=== PATIENT | male | born 1965 | race Hispanic/Latino ===

== ENCOUNTER 2017-10-20 16:28 | Inpatient (IN) | payer MEDICAID, OTHER ==
[~2017-10-20] VITALS: Ht 157.5 cm; Wt 58.3 kg
[~2017-10-20 16:28] MED LIST: FERS325 PO; FURO40TA5 PO; LACT10SO75 PO; SPIR25TA PO; THIA100T75 PO; vitamin b1 PO
[2017-10-20] MEDS ORDERED: IPRATROPIUM/ALBUTEROL SULFATE 3 ML SOLUTION IH ONE (16:57)
[2017-10-20 17:02] LABS: BASOPHILS % (AUTO) 0.7 % (0.0-5.0); EOSINOPHILS % (AUTO) 10.7 % (0.0-8.0); HEMATOCRIT 23.9 % (42-54); LYMPHOCYTES % (AUTO) 8.2 % (21.0-51.0); MEAN CORPUSCULAR HEMOGLOBIN 32.4 pg (27.0-33.0); MEAN CORPUSCULAR HGB CONC 35.6 g/dL (32.0-36.0); MONOCYTES % (AUTO) 15.5 % (3.0-13.0); NEUTROPHILS % (AUTO) 64.9 % (40.0-77.0); PLATELET COUNT (AUTO) 100 K/uL (130-400); RED BLOOD CELL COUNT(AUTO) 2.62 MIL/uL (4.50-6.20); RED CELL DISTRIBUTION WIDTH 19.4 % (11.0-15.5); WHITE BLOOD COUNT (AUTO) 7.9 K/uL (4.8-10.8)
[2017-10-20 17:14] LABS: INR 1.25 (0.85-1.15); PARTIAL THROMBOPLASTIN TIME 32.7 SEC (26.3-35.5); PROTHROMBIN TIME 13.1 SEC (9.6-11.6)
[2017-10-20 17:22] LABS: CREATININE 1.2 mg/dL (0.5-1.5); POTASSIUM 5.6 mmol/L (3.5-5.1)
[2017-10-20 17:27] LABS: ALBUMIN 2.2 g/dL (3.5-5.0); BILIRUBIN,TOTAL 1.3 mg/dL (0.2-1.0); TOTAL PROTEIN, SERUM 7.7 g/dL (6.0-8.3)
[2017-10-20] MEDS ORDERED: METRONIDAZOLE 500MG/100ML BAG 100 ML ONE (18:06)
[2017-10-20] MEDS ORDERED: LIDOCAINE HCL 1% 20 ML VIAL ONE (18:49)
[2017-10-20] MEDS ORDERED: ALBUMIN (HUMAN) 25% 200 ML IV ONE (19:50)
[2017-10-20] MEDS ORDERED: SODIUM CHLORIDE 0.9% 1000ML 1,000 ML IV ONE (22:15)
[2017-10-20] MEDS ORDERED: SODIUM POLYSTYRENE SULFONATE 15 GM/60 ML ML ONE (23:10)
[2017-10-20] MEDS ORDERED: CALCIUM GLUCONATE 1 GM/10 ML VIAL IV ONE (23:11)
[2017-10-20] MEDS ORDERED: DEXTROSE 50%-WATER 50 ML DISP.SYRIN IV ONE (23:11)
[2017-10-20] MEDS ORDERED: INSULIN HUMULIN R 100 UNIT/ML 3ML ONE (23:12)
[2017-10-20 23:51] LABS: GLUCOSE,BODY FLUID 123 mg/dL (1-40)
[2017-10-21] MEDS ORDERED: ONDANSETRON HCL 4 MG/2 ML VIAL IV PRN (00:15)
[2017-10-21] MEDS ORDERED: MORPHINE SULFATE 2 MG/ML 1ML SYG IV PRN (00:15)
[2017-10-21] MEDS ORDERED: HYDRALAZINE HCL 20 MG/ML VIAL IV PRN (00:15)
[2017-10-21] MEDS ORDERED: ACETAMINOPHEN 325 MG TAB PO PRN (00:15)
[2017-10-21 00:33] LABS: BF EOSINOPHIL 4 %; BF MESOTHELIAL 3 %; BF MONOCYTE 14 %
[2017-10-21 00:34] LABS: APPEARANCE BODY FLUID SLIGHTLY CLOUDY (CLEAR); COLOR,BODY FLUID YELLOW (LT YELLOW); SPECIMENTYPE,BODY FLUID PERITONEAL
[2017-10-21 00:35] LABS: TOTAL VOLUME,BODY FLUID 12 mL
[2017-10-21 00:36] LABS: BODY FLUID RBC 8 /cu. mm.; BODY FLUID WBC 14 /cu. mm.
[2017-10-21] MEDS ORDERED: MIDODRINE HCL 5 MG TABLET ONE (02:09)
[2017-10-21 05:33] LABS: BASOPHILS % (AUTO) 0.4 % (0.0-5.0); EOSINOPHILS % (AUTO) 7.9 % (0.0-8.0); LYMPHOCYTES % (AUTO) 8.2 % (21.0-51.0); MEAN CORPUSCULAR HEMOGLOBIN 32.2 pg (27.0-33.0); MEAN CORPUSCULAR HGB CONC 35.8 g/dL (32.0-36.0); MONOCYTES % (AUTO) 9.6 % (3.0-13.0); NEUTROPHILS % (AUTO) 73.9 % (40.0-77.0); PLATELET COUNT (AUTO) 57 K/uL (130-400); RED BLOOD CELL COUNT(AUTO) 2.29 MIL/uL (4.50-6.20); RED CELL DISTRIBUTION WIDTH 18.9 % (11.0-15.5); WHITE BLOOD COUNT (AUTO) 7.5 K/uL (4.8-10.8)
[2017-10-21 05:42] LABS: CREATININE 1.2 mg/dL (0.5-1.5); POTASSIUM 5.9 mmol/L (3.5-5.1)
[2017-10-21 05:47] LABS: HEMATOCRIT 20.6 % (42-54)
[2017-10-21 07:26] LABS: PLATELET MORPHOLOGY COMMENT MARKED DECREASED
[2017-10-21 09:11] VITALS: BP 101/49
[2017-10-21] MEDS ORDERED: SODIUM POLYSTYRENE SULFONATE 15 GM/60 ML ML ONE (10:05)
[2017-10-21] MEDS: FAMOTIDINE 20MG TAB 20 MG TAB PO SCH ×2 (10:10→20:59)
[2017-10-21] MEDS: LACTULOSE 20 GM/30 ML UDCUP PO SCH ×2 (10:10→20:59)
[2017-10-21] MEDS: THIAMINE HCL 100 MG/ML 2ML VIAL IM SCH (10:11)
[2017-10-21] MEDS: SPIRONOLACTONE 25 MG TAB PO SCH ×2 (10:11→20:59)
[2017-10-21] MEDS ORDERED: SODIUM POLYSTYRENE SULFONATE 15 GM/60 ML ML PO SCH (10:15)
[2017-10-21 11:00] VITALS: BP 107/50
[2017-10-21 16:00] VITALS: BP 88/45
[2017-10-21] MEDS ORDERED: ALBUMIN (HUMAN) 25% 50 ML IV SCH (16:30)
[2017-10-21 20:26] VITALS: BP 91/42
[2017-10-22] VITALS (7 sets, daily range): BP systolic 90–100; BP diastolic 40–69
[2017-10-22 05:04] LABS: MEAN CORPUSCULAR HEMOGLOBIN 31.3 pg (27.0-33.0); MEAN CORPUSCULAR HGB CONC 34.8 g/dL (32.0-36.0); MEAN CORPUSCULAR VOLUME 89.8 fL (79-99); PLATELET COUNT (AUTO) 37 K/uL (130-400); RED BLOOD CELL COUNT(AUTO) 2.14 MIL/uL (4.50-6.20); RED CELL DISTRIBUTION WIDTH 19.1 % (11.0-15.5); WHITE BLOOD COUNT (AUTO) 6.1 K/uL (4.8-10.8)
[2017-10-22 05:08] LABS: HEMATOCRIT 19.2 % (42-54)
[2017-10-22 05:25] LABS: CREATININE 1.1 mg/dL (0.5-1.5)
[2017-10-22] MEDS: FAMOTIDINE 20MG TAB 20 MG TAB PO SCH ×2 (10:41→20:43)
[2017-10-22] MEDS: LACTULOSE 20 GM/30 ML UDCUP PO SCH ×2 (10:41→20:43)
[2017-10-22] MEDS: THIAMINE HCL 100 MG/ML 2ML VIAL IM SCH (10:41)
[2017-10-22] MEDS: SPIRONOLACTONE 25 MG TAB PO SCH ×2 (10:41→20:43)
[2017-10-22] MEDS ORDERED: VANCOMYCIN 1GM+NS 250ML 250 ML IV ONE (11:39)
[2017-10-22] MEDS ORDERED: VANCOMYCIN 1GM+NS 250ML 250 ML IV SCH (11:57)
[2017-10-22] MEDS ORDERED: FUROSEMIDE 10 MG/ML 2ML VIAL IV ONE (14:40)
[2017-10-22] MEDS ORDERED: FUROSEMIDE 10 MG/ML 2ML VIAL ONE (16:12)
[2017-10-23] MEDS ORDERED: MORPHINE SULFATE 4 MG/1ML SYG ONE (04:49)
[2017-10-23 05:10] VITALS: BP 94/51
[2017-10-23 05:12] LABS: HEMATOCRIT 23.1 % (42-54); MEAN CORPUSCULAR HEMOGLOBIN 31.1 pg (27.0-33.0); MEAN CORPUSCULAR HGB CONC 34.4 g/dL (32.0-36.0); MEAN CORPUSCULAR VOLUME 90.5 fL (79-99); PLATELET COUNT (AUTO) 67 K/uL (130-400); RED BLOOD CELL COUNT(AUTO) 2.55 MIL/uL (4.50-6.20); WHITE BLOOD COUNT (AUTO) 6.5 K/uL (4.8-10.8)
[2017-10-23 05:24] LABS: CREATININE 1.5 mg/dL (0.5-1.5); POTASSIUM 3.9 mmol/L (3.5-5.1)
[2017-10-23 08:00] VITALS: BP 97/57
[2017-10-23] MEDS: SPIRONOLACTONE 25 MG TAB PO SCH (10:29)
[2017-10-23] MEDS: LACTULOSE 20 GM/30 ML UDCUP PO SCH (10:29)
[2017-10-23] MEDS: FAMOTIDINE 20MG TAB 20 MG TAB PO SCH (10:29)
[2017-10-23] MEDS: THIAMINE HCL 100 MG/ML 2ML VIAL IM SCH (10:30)
== END 2017-10-23 12:36 | disposition home or self-care (01) | DRG 433 ==
LOC: EDH 16:28 → OBSVTOIN 16:29 → EDHIP 16:29 → 4BH 10-21 00:57 → EDHIP 10-21 00:57 → 4CH 10-21 08:17
PROVIDERS: ADMIT Family Medicine; ATTEND Family Medicine
PROC: 0W9G3ZZ Drainage of Peritoneal Cavity, Percutaneous Approach (ICD-10-PCS; principal; 2017-10-20)
PROC: 30233N1 Transfusion of Nonautologous Red Blood Cells into Peripheral Vein, Percutaneous Approach (ICD-10-PCS; 2017-10-22)
DX: K70.31 Alcoholic cirrhosis of liver with ascites (principal); E87.1 Hypo-osmolality and hyponatremia; D69.59 Other secondary thrombocytopenia; E87.2 Acidosis; E87.5 Hyperkalemia; K92.2 Gastrointestinal hemorrhage, unspecified; D73.1 Hypersplenism; F17.200 Nicotine dependence, unspecified, uncomplicated; D64.9 Anemia, unspecified; Z28.21 Immunization not carried out because of patient refusal
CPT/HCPCS: 36415; 36430; 49083; 71045; 80048; 80053; 82140; 82270; 82945; 83605; 83615; 83880; 84157; 84484; 85025; 85027; 85610; 85730; 86850; 86900; 86901; 86922; 87040; 87071; 87186; 87205; 88108; 88305; 89051; 93005; 94640; J0610; J1815; J1940; J2270; J2405; J3370; J3411; J3490; J7030; J7070; P9016; P9046; P9047

== ENCOUNTER 2017-10-25 16:16 | Inpatient (IN) | payer MEDICAID, OTHER ==
[~2017-10-25] VITALS: Ht 162.6 cm; Wt 58.3 kg
[2017-10-25 17:15] LABS: BASOPHILS % (AUTO) 0.6 % (0.0-5.0); EOSINOPHILS % (AUTO) 2.7 % (0.0-8.0); HEMATOCRIT 25.4 % (42-54); LYMPHOCYTES % (AUTO) 14.9 % (21.0-51.0); MEAN CORPUSCULAR HEMOGLOBIN 30.9 pg (27.0-33.0); MEAN CORPUSCULAR HGB CONC 33.7 g/dL (32.0-36.0); MEAN CORPUSCULAR VOLUME 91.8 fL (79-99); MONOCYTES % (AUTO) 27.2 % (3.0-13.0); NEUTROPHILS % (AUTO) 54.6 % (40.0-77.0); PLATELET COUNT (AUTO) 59 K/uL (130-400); RED BLOOD CELL COUNT(AUTO) 2.76 MIL/uL (4.50-6.20); RED CELL DISTRIBUTION WIDTH 19.5 % (11.0-15.5); WHITE BLOOD COUNT (AUTO) 4.6 K/uL (4.8-10.8)
[2017-10-25 17:18] LABS: CREATININE 1.8 mg/dL (0.5-1.5)
[2017-10-25 17:21] LABS: INR 1.41 (0.85-1.15); PARTIAL THROMBOPLASTIN TIME 39.4 SEC (26.3-35.5); PROTHROMBIN TIME 14.7 SEC (9.6-11.6)
[2017-10-25 17:22] LABS: ALBUMIN 2.2 g/dL (3.5-5.0); BILIRUBIN,TOTAL 1.4 mg/dL (0.2-1.0); TOTAL PROTEIN, SERUM 6.7 g/dL (6.0-8.3)
[2017-10-25 22:35] VITALS: BP 106/60
[2017-10-26] MEDS ORDERED: ACETAMINOPHEN 325 MG TAB PO PRN (01:15)
[2017-10-26] MEDS ORDERED: MORPHINE SULFATE 2 MG/ML 1ML SYG IV PRN (01:15)
[2017-10-26] MEDS ORDERED: ONDANSETRON HCL 4 MG/2 ML VIAL IV PRN (01:15)
[2017-10-26 03:40] VITALS: BP 102/54
[2017-10-26 05:55] LABS: BASOPHILS % (AUTO) 1.4 % (0.0-5.0); EOSINOPHILS % (AUTO) 7.2 % (0.0-8.0); HEMATOCRIT 24.1 % (42-54); LYMPHOCYTES % (AUTO) 23.1 % (21.0-51.0); MEAN CORPUSCULAR HEMOGLOBIN 32.3 pg (27.0-33.0); MEAN CORPUSCULAR VOLUME 89.6 fL (79-99); MONOCYTES % (AUTO) 23.7 % (3.0-13.0); NEUTROPHILS % (AUTO) 44.6 % (40.0-77.0); PLATELET COUNT (AUTO) 42 K/uL (130-400); RED BLOOD CELL COUNT(AUTO) 2.69 MIL/uL (4.50-6.20); RED CELL DISTRIBUTION WIDTH 19.1 % (11.0-15.5); WHITE BLOOD COUNT (AUTO) 3.9 K/uL (4.8-10.8)
[2017-10-26 06:06] LABS: CREATININE 1.3 mg/dL (0.5-1.5); POTASSIUM 4.9 mmol/L (3.5-5.1)
[2017-10-26 07:00] VITALS: BP 99/56
[2017-10-26] MEDS ORDERED: FAMOTIDINE/PF 20 MG/2 ML VIAL IV SCH (09:00)
[2017-10-26] MEDS ORDERED: THIAMINE HCL 100 MG/ML 2ML VIAL IM SCH (09:00)
[2017-10-26] MEDS ORDERED: SPIRONOLACTONE 25 MG TAB PO SCH (09:00)
[2017-10-26] MEDS ORDERED: LACTULOSE 20 GM/30 ML UDCUP PO SCH (09:00)
== END 2017-10-26 10:14 | disposition left against medical advice (07) | DRG 432 ==
LOC: EDH 16:16 → EDHIP 16:17 → 4CH 22:18
PROVIDERS: ADMIT Family Medicine; ATTEND Family Medicine
DX: K70.31 Alcoholic cirrhosis of liver with ascites (principal); G93.41 Metabolic encephalopathy; N17.9 Acute kidney failure, unspecified; D69.59 Other secondary thrombocytopenia; E87.1 Hypo-osmolality and hyponatremia; D73.1 Hypersplenism; F17.200 Nicotine dependence, unspecified, uncomplicated
CPT/HCPCS: 36415; 71045; 80048; 80053; 82140; 82270; 85025; 85610; 85730; 86850; 86900; 86901; J3411

== ENCOUNTER 2017-10-31 19:38 | Inpatient (IN) | payer MEDICAID, OTHER ==
[~2017-10-31] VITALS: Ht 165.1 cm; Wt 56.2 kg
[~2017-10-31 19:38] MED LIST changes: -vitamin b1 PO
[2017-10-31 21:10] LABS: BASOPHILS % (AUTO) 0.4 % (0.0-5.0); EOSINOPHILS % (AUTO) 8.7 % (0.0-8.0); HEMATOCRIT 23.4 % (42-54); LYMPHOCYTES % (AUTO) 10.6 % (21.0-51.0); MEAN CORPUSCULAR HEMOGLOBIN 32.7 pg (27.0-33.0); MEAN CORPUSCULAR HGB CONC 36.2 g/dL (32.0-36.0); MEAN CORPUSCULAR VOLUME 90.4 fL (79-99); MONOCYTES % (AUTO) 12.9 % (3.0-13.0); NEUTROPHILS % (AUTO) 67.4 % (40.0-77.0); PLATELET COUNT (AUTO) 84 K/uL (130-400); RED BLOOD CELL COUNT(AUTO) 2.59 MIL/uL (4.50-6.20); RED CELL DISTRIBUTION WIDTH 20.2 % (11.0-15.5); WHITE BLOOD COUNT (AUTO) 9.7 K/uL (4.8-10.8)
[2017-10-31 21:21] LABS: CREATININE 1.4 mg/dL (0.5-1.5); POTASSIUM 5.2 mmol/L (3.5-5.1)
[2017-10-31 21:26] LABS: ALBUMIN 1.9 g/dL (3.5-5.0); BILIRUBIN,TOTAL 1.3 mg/dL (0.2-1.0); TOTAL PROTEIN, SERUM 6.9 g/dL (6.0-8.3)
[2017-10-31 21:28] LABS: ALBUMIN 1.9 g/dL (3.5-5.0); BILIRUBIN,DIRECT 0.8 mg/dL (0.0-0.3); BILIRUBIN,TOTAL 1.3 mg/dL (0.2-1.0); TOTAL PROTEIN, SERUM 6.9 g/dL (6.0-8.3)
[2017-10-31] MEDS ORDERED: SODIUM POLYSTYRENE SULFONATE 15 GM/60 ML ML ONE ×2 (22:14→22:18)
[2017-10-31 22:40] LABS: INR 1.3 (0.85-1.15); PARTIAL THROMBOPLASTIN TIME 38.7 SEC (26.3-35.5); PROTHROMBIN TIME 13.6 SEC (9.6-11.6)
[2017-10-31 23:12] LABS: APPEARANCE,URINE Clear (CLEAR); BILIRUBIN,URINE Small (NEGATIVE); COLOR,URINE Dark Yellow (YELLOW); GLUCOSE, URINE (UA) Negative (NEGATIVE); KETONES,URINE Negative (NEGATIVE); LEUKOCYTE ESTERASE ,URINE Moderate (NEGATIVE); NITRATE,URINE Negative (NEGATIVE); OCCULT BLOOD,URINE Negative (NEGATIVE); PROTEIN,URINE Negative (NEGATIVE)
[2017-10-31 23:22] LABS: BACTERIA,URINE None Seen /HPF (None Seen); MUCUS,URINE Few LPF (None Seen); RBC,URINE None Seen /HPF (0-1); SQUAMOUS EPITHELIAL CELL,UR Few /LPF (0-2)
[2017-11-01] MEDS ORDERED: IPRATROPIUM/ALBUTEROL SULFATE 3 ML SOLUTION IH PRN (03:30)
[2017-11-01] MEDS ORDERED: HYDRALAZINE HCL 20 MG/ML VIAL IV PRN (03:30)
[2017-11-01] MEDS: LEVOFLOXACIN 500 MG/D5W 100 ML 100 ML IV SCH (03:45)
[2017-11-01] MEDS: LACTULOSE 20 GM/30 ML UDCUP PO SCH ×3 (04:00→20:16)
[2017-11-01] MEDS ORDERED: ONDANSETRON HCL 4 MG/2 ML VIAL IVP PRN (04:00)
[2017-11-01] MEDS ORDERED: IPRATROPIUM/ALBUTEROL SULFATE 3 ML SOLUTION IH ONE (04:10)
[2017-11-01] MEDS ORDERED: LACTULOSE 20 GM/30 ML UDCUP ONE (04:30)
[2017-11-01] MEDS ORDERED: LEVOFLOXACIN 500 MG/D5W 100 ML 100 ML ONE (04:31)
[2017-11-01] MEDS: IPRATROPIUM/ALBUTEROL SULFATE 3 ML SOLUTION IH SCH ×5 (05:00→23:47)
[2017-11-01 06:04] LABS: BASOPHILS % (AUTO) 0.2 % (0.0-5.0); EOSINOPHILS % (AUTO) 3.8 % (0.0-8.0); HEMATOCRIT 27.4 % (42-54); LYMPHOCYTES % (AUTO) 11.2 % (21.0-51.0); MEAN CORPUSCULAR HEMOGLOBIN 31.1 pg (27.0-33.0); MEAN CORPUSCULAR HGB CONC 34.5 g/dL (32.0-36.0); MEAN CORPUSCULAR VOLUME 90.2 fL (79-99); MONOCYTES % (AUTO) 10.2 % (3.0-13.0); NEUTROPHILS % (AUTO) 74.6 % (40.0-77.0); PLATELET COUNT (AUTO) 84 K/uL (130-400); RED BLOOD CELL COUNT(AUTO) 3.04 MIL/uL (4.50-6.20); RED CELL DISTRIBUTION WIDTH 19.8 % (11.0-15.5); WHITE BLOOD COUNT (AUTO) 8.1 K/uL (4.8-10.8)
[2017-11-01 06:21] LABS: CREATININE 1.6 mg/dL (0.5-1.5); MAGNESIUM 2.1 mg/dL (1.80-2.40); PHOSPHORUS 4.3 mg/dL (2.5-4.9); POTASSIUM 3.9 mmol/L (3.5-5.1)
[2017-11-01 06:36] LABS: B-TYPE NATRIURETIC PEPTIDE 71 pg/mL (0-100)
[2017-11-01] MEDS: FAMOTIDINE/PF 20 MG/2 ML VIAL IV SCH ×2 (09:00→20:16)
[2017-11-01] MEDS ORDERED: PANTOPRAZOLE 40 MG/VIAL IVP SCH (09:00)
[2017-11-01] MEDS: FUROSEMIDE 10 MG/ML 4ML VIAL IVP SCH ×2 (09:00→20:16)
[2017-11-01] MEDS ORDERED: ALBUMIN (HUMAN) 25% 100 ML IV PRN (10:45)
[2017-11-01] MEDS ORDERED: ALBUMIN (HUMAN) 25% 200 ML IV SCH (10:52)
[2017-11-01 12:59] VITALS: BP 101/59
[2017-11-01 15:22] VITALS: BP 107/59
[2017-11-01 20:00] VITALS: BP 110/65
[2017-11-02] VITALS: BP 99/59
[2017-11-02] MEDS: LEVOFLOXACIN 500 MG/D5W 100 ML 100 ML IV SCH (03:56)
[2017-11-02 04:00] VITALS: BP 101/59
[2017-11-02] MEDS: LACTULOSE 20 GM/30 ML UDCUP PO SCH ×2 (04:04→11:25)
[2017-11-02] MEDS: IPRATROPIUM/ALBUTEROL SULFATE 3 ML SOLUTION IH SCH ×2 (04:58→11:13)
[2017-11-02 05:20] LABS: BASOPHILS % (AUTO) 0.4 % (0.0-5.0); EOSINOPHILS % (AUTO) 5.3 % (0.0-8.0); LYMPHOCYTES % (AUTO) 14.3 % (21.0-51.0); MEAN CORPUSCULAR HEMOGLOBIN 33.7 pg (27.0-33.0); MEAN CORPUSCULAR HGB CONC 37.9 g/dL (32.0-36.0); MONOCYTES % (AUTO) 17.4 % (3.0-13.0); NEUTROPHILS % (AUTO) 62.6 % (40.0-77.0); PLATELET COUNT (AUTO) 46 K/uL (130-400); RED BLOOD CELL COUNT(AUTO) 2.31 MIL/uL (4.50-6.20); RED CELL DISTRIBUTION WIDTH 19.6 % (11.0-15.5); WHITE BLOOD COUNT (AUTO) 5.3 K/uL (4.8-10.8)
[2017-11-02 05:24] LABS: HEMATOCRIT 20.6 % (42-54)
[2017-11-02 05:36] LABS: PLATELET MORPHOLOGY COMMENT DECREASED
[2017-11-02 05:37] LABS: CREATININE 1.4 mg/dL (0.5-1.5)
[2017-11-02 05:38] LABS: POTASSIUM 2.9 mmol/L (3.5-5.1)
[2017-11-02] MEDS ORDERED: POTASSIUM BICARB/CIT AC 25 MEQ TABLET.EFF PO SCH (06:00)
[2017-11-02 07:37] VITALS: BP 97/55
[2017-11-02] MEDS: FAMOTIDINE/PF 20 MG/2 ML VIAL IV SCH (08:17)
[2017-11-02] MEDS: FUROSEMIDE 10 MG/ML 4ML VIAL IVP SCH (08:18)
[2017-11-02] MEDS ORDERED: SODIUM CHLORIDE 0.9% 250 ML IV ONE (09:41)
[2017-11-02 11:18] VITALS: BP 114/69
[2017-11-02 15:11] VITALS: BP 120/69
== END 2017-11-02 15:39 | disposition home or self-care (01) | DRG 441 ==
LOC: EDH 19:38 → EDHIP 19:39 → 4BH 11-01 11:47
PROVIDERS: ADMIT Family Medicine; ATTEND Family Medicine
PROC: 0W9G3ZZ Drainage of Peritoneal Cavity, Percutaneous Approach (ICD-10-PCS; principal; 2017-11-01)
PROC: 30233N1 Transfusion of Nonautologous Red Blood Cells into Peripheral Vein, Percutaneous Approach (ICD-10-PCS; 2017-11-01)
DX: K72.90 Hepatic failure, unspecified without coma (principal); E43 Unspecified severe protein-calorie malnutrition; N17.9 Acute kidney failure, unspecified; D69.59 Other secondary thrombocytopenia; R18.8 Other ascites; N48.89 Other specified disorders of penis; K74.60 Unspecified cirrhosis of liver; D73.1 Hypersplenism; F17.200 Nicotine dependence, unspecified, uncomplicated; Z84.89 Family history of other specified conditions
CPT/HCPCS: 36415; 49083; 80048; 80053; 80076; 81001; 82140; 82150; 83690; 83735; 83880; 84100; 85025; 85610; 85730; 86850; 86900; 86901; 86922; 94640; 94664; 99291; J1940; J1956; J3490; J7030; P9016; P9046

== ENCOUNTER 2017-11-14 17:45 | Inpatient (IN) | payer MEDICAID, OTHER ==
[~2017-11-14] VITALS: Ht 165.1 cm; Wt 59.0 kg
[2017-11-14 18:34] LABS: BASOPHILS % (AUTO) 0.4 % (0.0-5.0); EOSINOPHILS % (AUTO) 2.6 % (0.0-8.0); HEMATOCRIT 24.5 % (42-54); LYMPHOCYTES % (AUTO) 6.2 % (21.0-51.0); MEAN CORPUSCULAR HEMOGLOBIN 31.7 pg (27.0-33.0); MEAN CORPUSCULAR HGB CONC 34.5 g/dL (32.0-36.0); NEUTROPHILS % (AUTO) 82.8 % (40.0-77.0); PLATELET COUNT (AUTO) 120 K/uL (130-400); RED BLOOD CELL COUNT(AUTO) 2.66 MIL/uL (4.50-6.20); RED CELL DISTRIBUTION WIDTH 20.9 % (11.0-15.5); WHITE BLOOD COUNT (AUTO) 12.7 K/uL (4.8-10.8)
[2017-11-14 18:50] LABS: INR 1.42 (0.85-1.15); PARTIAL THROMBOPLASTIN TIME 32.7 SEC (26.3-35.5); PROTHROMBIN TIME 14.8 SEC (9.6-11.6)
[2017-11-14 18:51] LABS: CREATININE 1.4 mg/dL (0.5-1.5); POTASSIUM 4.8 mmol/L (3.5-5.1)
[2017-11-14 18:55] LABS: ALBUMIN 2.2 g/dL (3.5-5.0); BILIRUBIN,TOTAL 2.2 mg/dL (0.2-1.0); TOTAL PROTEIN, SERUM 8.2 g/dL (6.0-8.3)
[2017-11-14] MEDS ORDERED: SODIUM CHLORIDE 0.9% 1000ML 1,000 ML IV ONE (19:51)
[2017-11-15] VITALS (12 sets, daily range): BP systolic 93–119; BP diastolic 47–68
[2017-11-15] MEDS ORDERED: ACETAMINOPHEN 325 MG TAB PO PRN ×2
[2017-11-15] MEDS ORDERED: ONDANSETRON HCL 4 MG/2 ML VIAL IV PRN
[2017-11-15] MEDS ORDERED: IPRATROPIUM/ALBUTEROL SULFATE 3 ML SOLUTION IH ONE ×2 (00:31→07:24)
[2017-11-15] MEDS: IPRATROPIUM/ALBUTEROL SULFATE 3 ML SOLUTION IH SCH ×5 (01:20→18:05)
[2017-11-15 04:16] LABS: APPEARANCE,URINE Cloudy (CLEAR); BILIRUBIN,URINE Small (NEGATIVE); COLOR,URINE Dark Yellow (YELLOW); GLUCOSE, URINE (UA) Negative (NEGATIVE); KETONES,URINE Trace mg/dL (NEGATIVE); LEUKOCYTE ESTERASE ,URINE Small (NEGATIVE); NITRATE,URINE Negative (NEGATIVE); OCCULT BLOOD,URINE Negative (NEGATIVE); PH,URINE 5.5 (5.0-8.0); PROTEIN,URINE Negative (NEGATIVE)
[2017-11-15 04:32] LABS: BACTERIA,URINE Moderate /HPF (None Seen); RBC,URINE None Seen /HPF (0-1); SQUAMOUS EPITHELIAL CELL,UR Few /LPF (0-2)
[2017-11-15 07:05] LABS: HEMATOCRIT 21.6 % (42-54); MEAN CORPUSCULAR HEMOGLOBIN 33.2 pg (27.0-33.0); MEAN CORPUSCULAR HGB CONC 35.6 g/dL (32.0-36.0); MEAN CORPUSCULAR VOLUME 93.2 fL (79-99); PLATELET COUNT (AUTO) 102 K/uL (130-400); RED BLOOD CELL COUNT(AUTO) 2.31 MIL/uL (4.50-6.20); RED CELL DISTRIBUTION WIDTH 21.8 % (11.0-15.5); WHITE BLOOD COUNT (AUTO) 11.7 K/uL (4.8-10.8)
[2017-11-15 07:17] LABS: CREATININE 1.3 mg/dL (0.5-1.5); INR 1.45 (0.85-1.15); PARTIAL THROMBOPLASTIN TIME 35.7 SEC (26.3-35.5); PHOSPHORUS 3.7 mg/dL (2.5-4.9); POTASSIUM 5.2 mmol/L (3.5-5.1); PROTHROMBIN TIME 15.1 SEC (9.6-11.6)
[2017-11-15] MEDS: FUROSEMIDE 10 MG/ML 4ML VIAL IVP SCH ×2 (09:00→20:43)
[2017-11-15] MEDS ORDERED: HEPARIN SODIUM 5000UNIT/ML 1ML VIAL SQ SCH (09:00)
[2017-11-15] MEDS: PANTOPRAZOLE SODIUM 40 MG TABLET.DR PO SCH (09:00)
[2017-11-15] MEDS ORDERED: PANTOPRAZOLE SODIUM 40 MG TABLET.DR PO ONE (09:31)
[2017-11-15] MEDS ORDERED: FUROSEMIDE 10 MG/ML 4ML VIAL ONE (09:31)
[2017-11-15] MEDS ORDERED: ALBUMIN (HUMAN) 25% 200 ML IV ONE (16:45)
[2017-11-15 18:38] LABS: APPEARANCE BODY FLUID CLEAR (CLEAR); COLOR,BODY FLUID LT YELLOW (LT YELLOW); SPECIMENTYPE,BODY FLUID ASCITES
[2017-11-15 18:39] LABS: TOTAL VOLUME,BODY FLUID 1300 mL
[2017-11-15 18:48] LABS: BODY FLUID RBC 25 /cu. mm.; BODY FLUID WBC 8 /cu. mm.
[2017-11-15 19:35] LABS: BF LYMPHOCYTE 10 %; BF MONOCYTE 54 %
[2017-11-15] MEDS: SPIRONOLACTONE 25 MG TAB PO SCH (20:43)
[2017-11-15] MEDS: FERROUS SULFATE 325 MG TABLET.DR PO SCH (20:43)
[2017-11-15] MEDS: LACTULOSE 20 GM/30 ML UDCUP PO SCH (20:43)
[2017-11-16] MEDS: IPRATROPIUM/ALBUTEROL SULFATE 3 ML SOLUTION IH SCH ×5 (00:53→23:15)
[2017-11-16 05:00] VITALS: BP 83/37
[2017-11-16 05:37] LABS: MEAN CORPUSCULAR HEMOGLOBIN 33.7 pg (27.0-33.0); MEAN CORPUSCULAR HGB CONC 36.1 g/dL (32.0-36.0); MEAN CORPUSCULAR VOLUME 93.3 fL (79-99); PLATELET COUNT (AUTO) 48 K/uL (130-400); RED BLOOD CELL COUNT(AUTO) 1.92 MIL/uL (4.50-6.20); RED CELL DISTRIBUTION WIDTH 21.4 % (11.0-15.5); WHITE BLOOD COUNT (AUTO) 8.5 K/uL (4.8-10.8)
[2017-11-16] MEDS ORDERED: ALBUMIN (HUMAN) 25% 100 ML IV SCH (06:00)
[2017-11-16 06:04] LABS: CREATININE 1.4 mg/dL (0.5-1.5); MAGNESIUM 1.8 mg/dL (1.80-2.40); POTASSIUM 4.7 mmol/L (3.5-5.1)
[2017-11-16 08:00] VITALS: BP 90/55
[2017-11-16 12:00] VITALS: BP 90/50
[2017-11-16] MEDS: LACTULOSE 20 GM/30 ML UDCUP PO SCH ×2 (12:39→20:57)
[2017-11-16] MEDS: RIFAXIMIN 550 MG TABLET PO SCH ×2 (12:39→20:57)
[2017-11-16] MEDS: THIAMINE HCL 100 MG TABLET PO SCH (12:39)
[2017-11-16] MEDS: FERROUS SULFATE 325 MG TABLET.DR PO SCH ×2 (12:39→20:57)
[2017-11-16] MEDS: FUROSEMIDE 10 MG/ML 4ML VIAL IVP SCH ×2 (12:39→20:57)
[2017-11-16] MEDS: SPIRONOLACTONE 25 MG TAB PO SCH ×2 (12:39→20:57)
[2017-11-16] MEDS: PANTOPRAZOLE SODIUM 40 MG TABLET.DR PO SCH (12:39)
[2017-11-16 16:00] VITALS: BP 93/52
[2017-11-16 16:12] LABS: HEMATOCRIT 25.5 % (42-54); MEAN CORPUSCULAR HEMOGLOBIN 31.1 pg (27.0-33.0); MEAN CORPUSCULAR HGB CONC 34.9 g/dL (32.0-36.0); PLATELET COUNT (AUTO) 61 K/uL (130-400); RED BLOOD CELL COUNT(AUTO) 2.86 MIL/uL (4.50-6.20); RED CELL DISTRIBUTION WIDTH 20.6 % (11.0-15.5); WHITE BLOOD COUNT (AUTO) 8.9 K/uL (4.8-10.8)
[2017-11-16 19:40] VITALS: BP 84/43
[2017-11-16 23:37] VITALS: BP 97/61
[2017-11-17] VITALS (10 sets, daily range): BP systolic 83–105; BP diastolic 5–67
[2017-11-17 06:11] LABS: HEMATOCRIT 23.7 % (42-54); MEAN CORPUSCULAR HEMOGLOBIN 33.7 pg (27.0-33.0); MEAN CORPUSCULAR HGB CONC 37.6 g/dL (32.0-36.0); MEAN CORPUSCULAR VOLUME 89.8 fL (79-99); PLATELET COUNT (AUTO) 49 K/uL (130-400); RED BLOOD CELL COUNT(AUTO) 2.63 MIL/uL (4.50-6.20); RED CELL DISTRIBUTION WIDTH 20.7 % (11.0-15.5); WHITE BLOOD COUNT (AUTO) 7.1 K/uL (4.8-10.8)
[2017-11-17] MEDS: IPRATROPIUM/ALBUTEROL SULFATE 3 ML SOLUTION IH SCH ×3 (06:17→18:25)
[2017-11-17 06:18] LABS: CREATININE 1.3 mg/dL (0.5-1.5); MAGNESIUM 1.8 mg/dL (1.80-2.40); POTASSIUM 4.1 mmol/L (3.5-5.1)
[2017-11-17 06:21] LABS: INR 1.58 (0.85-1.15); PARTIAL THROMBOPLASTIN TIME 41.2 SEC (26.3-35.5); PROTHROMBIN TIME 16.4 SEC (9.6-11.6)
[2017-11-17] MEDS: PANTOPRAZOLE SODIUM 40 MG TABLET.DR PO SCH (10:37)
[2017-11-17] MEDS: FERROUS SULFATE 325 MG TABLET.DR PO SCH ×2 (10:37→20:58)
[2017-11-17] MEDS: RIFAXIMIN 550 MG TABLET PO SCH ×2 (10:37→20:58)
[2017-11-17] MEDS: THIAMINE HCL 100 MG TABLET PO SCH (10:37)
[2017-11-17] MEDS: SPIRONOLACTONE 25 MG TAB PO SCH ×2 (10:37→20:58)
[2017-11-17] MEDS: FUROSEMIDE 10 MG/ML 4ML VIAL IVP SCH ×2 (10:38→20:58)
[2017-11-17] MEDS: LACTULOSE 20 GM/30 ML UDCUP PO SCH ×2 (10:41→20:58)
[2017-11-17] MEDS: ALBUMIN (HUMAN) 25% 200 ML IV SCH (11:45)
[2017-11-18] VITALS (22 sets, daily range): BP systolic 84–114; BP diastolic 47–72
[2017-11-18] MEDS: IPRATROPIUM/ALBUTEROL SULFATE 3 ML SOLUTION IH SCH ×5 (00:27→23:55)
[2017-11-18 03:52] LABS: HEMATOCRIT 24.6 % (42-54); MEAN CORPUSCULAR HEMOGLOBIN 31.4 pg (27.0-33.0); MEAN CORPUSCULAR HGB CONC 34.7 g/dL (32.0-36.0); MEAN CORPUSCULAR VOLUME 90.4 fL (79-99); PLATELET COUNT (AUTO) 38 K/uL (130-400); RED BLOOD CELL COUNT(AUTO) 2.72 MIL/uL (4.50-6.20); RED CELL DISTRIBUTION WIDTH 21.1 % (11.0-15.5); WHITE BLOOD COUNT (AUTO) 6.6 K/uL (4.8-10.8)
[2017-11-18 04:14] LABS: CREATININE 1.3 mg/dL (0.5-1.5); POTASSIUM 3.6 mmol/L (3.5-5.1)
[2017-11-18] MEDS ORDERED: CEFTRIAXONE 1GM/D5W 50ML 50 ML IV SCH (14:45)
[2017-11-18] MEDS: LACTULOSE 20 GM/30 ML UDCUP PO SCH ×2 (15:22→22:33)
[2017-11-18] MEDS: RIFAXIMIN 550 MG TABLET PO SCH ×2 (15:23→22:33)
[2017-11-18] MEDS: THIAMINE HCL 100 MG TABLET PO SCH (15:23)
[2017-11-18] MEDS: FUROSEMIDE 10 MG/ML 4ML VIAL IVP SCH ×2 (15:23→22:35)
[2017-11-18] MEDS: FERROUS SULFATE 325 MG TABLET.DR PO SCH ×2 (15:23→22:51)
[2017-11-18] MEDS: SPIRONOLACTONE 25 MG TAB PO SCH ×2 (15:23→22:33)
[2017-11-18] MEDS: CEFTRIAXONE SODIUM 1 GM IVP SCH (15:23)
[2017-11-18] MEDS: PANTOPRAZOLE SODIUM 40 MG TABLET.DR PO SCH (15:23)
[2017-11-18] MEDS: OCTREOTIDE ACETATE 1,000 MCG in SODIUM CHLORIDE 0.9% 95 ML IV SCH (15:24)
[2017-11-19 01:05] VITALS: BP 96/53
[2017-11-19 04:16] LABS: HEMATOCRIT 24.5 % (42-54); MEAN CORPUSCULAR HEMOGLOBIN 33.9 pg (27.0-33.0); MEAN CORPUSCULAR HGB CONC 37.3 g/dL (32.0-36.0); MEAN CORPUSCULAR VOLUME 91.1 fL (79-99); PLATELET COUNT (AUTO) 39 K/uL (130-400); RED BLOOD CELL COUNT(AUTO) 2.69 MIL/uL (4.50-6.20); WHITE BLOOD COUNT (AUTO) 5.4 K/uL (4.8-10.8)
[2017-11-19 04:29] LABS: ALBUMIN 2.4 g/dL (3.5-5.0); BILIRUBIN,DIRECT 0.9 mg/dL (0.0-0.3); BILIRUBIN,TOTAL 2.8 mg/dL (0.2-1.0); CREATININE 1.2 mg/dL (0.5-1.5); POTASSIUM 3.8 mmol/L (3.5-5.1); TOTAL PROTEIN, SERUM 6.4 g/dL (6.0-8.3)
[2017-11-19 04:44] VITALS: BP 94/60
[2017-11-19] MEDS: IPRATROPIUM/ALBUTEROL SULFATE 3 ML SOLUTION IH SCH ×4 (06:26→23:37)
[2017-11-19 06:44] LABS: EOSINOPHILS % (MANUAL) 9 % (1-6); LYMPHOCYTES % (MANUAL) 20 % (22-44); MONOCYTES % (MANUAL) 8 % (2-9); SEGMENTED NEUTROPHILS % 63 % (40-70)
[2017-11-19 06:45] LABS: MAN.DIFF COMMENT-IMPRESSION MANUAL DIFFERENTIAL
[2017-11-19 06:47] LABS: PLATELET MORPHOLOGY COMMENT MARKED DECREASED
[2017-11-19 08:00] VITALS: BP 96/58
[2017-11-19] MEDS ORDERED: PANTOPRAZOLE SODIUM 40 MG TABLET.DR PO SCH (09:00)
[2017-11-19] MEDS: FERROUS SULFATE 325 MG TABLET.DR PO SCH ×2 (09:54→20:17)
[2017-11-19] MEDS: RIFAXIMIN 550 MG TABLET PO SCH ×2 (09:54→20:17)
[2017-11-19] MEDS: THIAMINE HCL 100 MG TABLET PO SCH (09:54)
[2017-11-19] MEDS: SPIRONOLACTONE 25 MG TAB PO SCH ×2 (09:55→20:17)
[2017-11-19] MEDS: PANTOPRAZOLE SODIUM 40 MG TABLET.DR PO SCH (09:55)
[2017-11-19] MEDS: LACTULOSE 20 GM/30 ML UDCUP PO SCH ×2 (09:55→20:17)
[2017-11-19] MEDS: FUROSEMIDE 10 MG/ML 4ML VIAL IVP SCH ×2 (09:56→20:16)
[2017-11-19] MEDS: ALBUMIN (HUMAN) 25% 200 ML IV SCH (10:01)
[2017-11-19] MEDS: OCTREOTIDE ACETATE 1,000 MCG in SODIUM CHLORIDE 0.9% 95 ML IV SCH (10:48)
[2017-11-19 12:00] VITALS: BP 100/66
[2017-11-19] MEDS ORDERED: ALBUMIN (HUMAN) 25% 200 ML IV SCH (13:45)
[2017-11-19] MEDS: CEFTRIAXONE SODIUM 1 GM IVP SCH (15:49)
[2017-11-19 16:00] VITALS: BP 94/58
[2017-11-19 20:00] VITALS: BP 97/54
[2017-11-20 00:15] VITALS: BP 98/51
[2017-11-20 04:14] LABS: HEMATOCRIT 25.2 % (42-54); MEAN CORPUSCULAR HEMOGLOBIN 32.1 pg (27.0-33.0); MEAN CORPUSCULAR VOLUME 91.6 fL (79-99); NUCLEATED RED BLOOD CELLS 0.1 % (0.0-0.19); PLATELET COUNT (AUTO) 41 K/uL (130-400); RED BLOOD CELL COUNT(AUTO) 2.75 MIL/uL (4.50-6.20); RED CELL DISTRIBUTION WIDTH 20.7 % (11.0-15.5); WHITE BLOOD COUNT (AUTO) 6.2 K/uL (4.8-10.8)
[2017-11-20 04:20] LABS: INR 1.49 (0.85-1.15); PROTHROMBIN TIME 15.5 SEC (9.6-11.6)
[2017-11-20 04:22] VITALS: BP 94/50
[2017-11-20 04:26] LABS: CREATININE 1.2 mg/dL (0.5-1.5); POTASSIUM 3.8 mmol/L (3.5-5.1)
[2017-11-20 04:51] LABS: BAND NEUTROPHILS % (MANUAL) 12 % (0-2); EOSINOPHILS % (MANUAL) 3 % (1-6); LYMPHOCYTES % (MANUAL) 23 % (22-44); MONOCYTES % (MANUAL) 5 % (2-9); SEGMENTED NEUTROPHILS % 57 % (40-70)
[2017-11-20 04:52] LABS: MAN.DIFF COMMENT-IMPRESSION MANUAL DIF; PLATELET MORPHOLOGY COMMENT DECREASED
[2017-11-20] MEDS: IPRATROPIUM/ALBUTEROL SULFATE 3 ML SOLUTION IH SCH (06:46)
[2017-11-20 08:00] VITALS: BP 96/57
== END 2017-11-20 13:40 | disposition home or self-care (01) | DRG 432 ==
LOC: EDH 17:45 → OBSVTOIN 17:46 → EDHIP 17:46 → 3AH 11-15 10:05
PROVIDERS: ADMIT Family Medicine; ATTEND Family Medicine
PROC: 0W9G3ZZ Drainage of Peritoneal Cavity, Percutaneous Approach (ICD-10-PCS; principal; 2017-11-15)
PROC: 30233N1 Transfusion of Nonautologous Red Blood Cells into Peripheral Vein, Percutaneous Approach (ICD-10-PCS; 2017-11-16)
PROC: 0W9G3ZZ Drainage of Peritoneal Cavity, Percutaneous Approach (ICD-10-PCS; 2017-11-17)
PROC: 06L38CZ Occlusion of Esophageal Vein with Extraluminal Device, Via Natural or Artificial Opening Endoscopic (ICD-10-PCS; 2017-11-18)
PROC: 0W9G3ZZ Drainage of Peritoneal Cavity, Percutaneous Approach (ICD-10-PCS; 2017-11-20)
DX: K70.31 Alcoholic cirrhosis of liver with ascites (principal); E43 Unspecified severe protein-calorie malnutrition; I85.11 Secondary esophageal varices with bleeding; N17.9 Acute kidney failure, unspecified; D69.59 Other secondary thrombocytopenia; D69.6 Thrombocytopenia, unspecified; D50.0 Iron deficiency anemia secondary to blood loss (chronic); E11.9 Type 2 diabetes mellitus without complications; D63.8 Anemia in other chronic diseases classified elsewhere; D73.1 Hypersplenism; D72.829 Elevated white blood cell count, unspecified; F02.80 Dementia in other diseases classified elsewhere, unspecified severity, without behavioral disturbance, psychotic disturbance, mood disturbance, and anxiety; I10 Essential (primary) hypertension; G30.9 Alzheimer's disease, unspecified; I25.10 Atherosclerotic heart disease of native coronary artery without angina pectoris; J44.9 Chronic obstructive pulmonary disease, unspecified; Z59.0 Homelessness; Z68.21 Body mass index [BMI] 21.0-21.9, adult
CPT/HCPCS: 36415; 36430; 49083; 80048; 80053; 80076; 81001; 82105; 82140; 83735; 84100; 85025; 85027; 85610; 85730; 86850; 86900; 86901; 86922; 87071; 87205; 89051; 94640; 94664; A4218; J0696; J1940; J2354; J7030; P9016; P9046